=== PATIENT | female | born 1980 | race Caucasian/White ===

== ENCOUNTER 2017-09-20 00:27 | Inpatient (IN) | payer MEDICAID, OTHER ==
--- NOTE | 2017-09-20 00:42 | ED PDOC ---
Psych Transfer Clearance - Clearance Statement Clearance Statement: Reviewed vital signs, lab results and transfer papers. Patient clinically stable for psychiatric admission.
[2017-09-20 00:47] VITALS: O2SAT 97; BMI 30.9
[2017-09-20] MEDS ORDERED: Magnesium Hydroxide Susp 30 ml UD PO PRN (00:56)
[2017-09-20] MEDS ORDERED: Alum-Mag Hydrox-Simethicone Susp (30 mL) PO PRN (00:56)
[2017-09-20] MEDS ORDERED: DiphenhydrAMINE 50 mg/ml Inj IM PRN (00:56)
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
[2017-09-20 09:05] LABS: T4 8.31 ug/dl (5.5-11.0)
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
--- NOTE | 2017-09-20 19:33 | CP.PCM.CON ---
History of Present Illness - History of Present Illness History of Present Illness: 37 yo female admitted to psyche unit because of bizarre behaviour and delusional thoughts. Review of Systems - Review of Systems All systems: reviewed and no additional remarkable complaints except (aside from those mentioned above, 12 point system review were negative by me) Past Patient History - Infectious Disease Hx of Infectious Diseases: None - Tetanus Immunizations Tetanus Immunization: Unknown - Past Medical History & Family History Past Medical History?: No Past Family History: Reviewed and not pertinent - Past Social History Smoking Status: Light Smoker < 10 Cigarettes Daily Alcohol: Occasional Drugs: Denies - CARDIAC Hx Cardiac Disorders: No Hx Hypertension: No - PULMONARY Hx Respiratory Disorders: No Hx Tuberculosis: No - NEUROLOGICAL Hx Neurological Disorder: No Hx Migraine: Yes - HEENT Hx HEENT Problems: No - RENAL Hx Chronic Kidney Disease: No - ENDOCRINE/METABOLIC Hx Endocrine Disorders: No - HEMATOLOGICAL/ONCOLOGICAL Hx Blood Disorders: No Hx Cancer: No Hx Human Immunodeficiency Virus (HIV): No - INTEGUMENTARY Hx Dermatological Problems: No - MUSCULOSKELETAL/RHEUMATOLOGICAL Hx Musculoskeletal Disorders: No - GASTROINTESTINAL Hx Gastrointestinal Disorders: No - GENITOURINARY/GYNECOLOGICAL Hx Genitourinary Disorders: No Hx Sexually Transmitted Disorders: No - PSYCHIATRIC Hx Substance Use: Yes - SURGICAL HISTORY Hx Surgeries: No - ANESTHESIA Hx Anesthesia: No Meds Allergies/Adverse Reactions: Allergies Allergy/AdvReac Type Severity Reaction Status Date / Time avocado Allergy NAUSEA Verified 09/20/17 00:38 peanut Allergy ITCHING Verified 09/20/17 00:38 - Medications Medications: Current Medications Acetaminophen (Tylenol 325mg Tab) 650 mg PO Q4 PRN PRN Reason: Pain, moderate (4-7) Al Hydrox/Mg Hydrox/Simethicone (Maalox Plus 30 Ml) 30 ml PO Q4 PRN PRN Reason: Dyspepsia Aripiprazole (Abilify) 10 mg PO DAILY KARY Last Admin: 09/20/17 14:58 Dose: 10 mg Diphenhydramine HCl (Benadryl) 50 mg IM Q6 PRN PRN Reason: Extrapyramidal S/S Unable PO Diphenhydramine HCl (Benadryl) 50 mg PO HS PRN PRN Reason: Sleep Last Admin: 09/20/17 01:20 Dose: 50 mg Diphenhydramine HCl (Benadryl) 50 mg PO Q6 PRN PRN Reason: EPS Haloperidol (Haldol) 5 mg PO Q4 PRN PRN Reason: Agitation Last Admin: 09/20/17 01:20 Dose: 5 mg Haloperidol Lactate (Haldol) 5 mg IM Q4 PRN PRN Reason: Agitation, Unable to Take PO Lorazepam (Ativan) 2 mg IM Q4 PRN PRN Reason: Anxiety/Agitation,Unable PO Lorazepam (Ativan) 2 mg PO Q4 PRN PRN Reason: Anxiety/Agitation Last Admin: 09/20/17 01:20 Dose: 2 mg Magnesium Hydroxide (Milk Of Magnesia) 30 ml PO HS PRN PRN Reason: Constipation Physical Exam - Constitutional Appears: No Acute Distress - Head Exam Head Exam: ATRAUMATIC - Eye Exam Eye Exam: absent: Scleral icterus - ENT Exam ENT Exam: Mucous Membranes Moist - Neck Exam Neck exam: Negative for: Meningismus - Respiratory Exam Respiratory Exam: absent: Rhonchi, Wheezes, Respiratory Distress - Cardiovascular Exam Cardiovascular Exam: REGULAR RHYTHM, +S1, +S2 - GI/Abdominal Exam GI & Abdominal Exam: Soft. absent: Tenderness - Rectal Exam Rectal Exam: Deferred - Extremities Exam Extremities exam: Negative for: pedal edema - Back Exam Back exam: absent: tenderness - Neurological Exam Neurological exam: Alert, Oriented x3 - Psychiatric Exam Psychiatric exam: Normal Affect - Skin Skin Exam: Dry, Intact Results - Vital Signs Recent Vital Signs: Last Vital Signs Temp 98.1 F 09/20/17 17:00 Pulse 9 L 09/20/17 17:00 Resp 20 09/20/17 17:00 BP 118/65 09/20/17 17:00 Pulse Ox 97 09/20/17 00:39 - Labs Labs: Laboratory Results - last 24 hr 09/20/17 08:00 Triglycerides 155 H Cholesterol 190 LDL Cholesterol Direct 121 HDL Cholesterol 40 Thyroxine (T4) 8.31 TSH 3rd Generation 0.83 Assessment & Plan (1) Schizoaffective disorder Status: Acute Comment: psyche is managing
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
[2017-09-23 07:50] LABS: ALB/GLOB RATIO 1.3 (1.0-2.1); ALBUMIN 4.3 g/dL (3.5-5.0); ALT/SGPT 33 U/L (9-52); AST/SGOT 23 U/L (14-36); BLOOD UREA NITROGEN 11 mg/dl (7-17); CALCIUM 9.3 mg/dL (8.4-10.2); GFR AFRICAN-AMERICAN > 60; GFR NON-AFRICAN AMERICAN > 60; HDL CHOLESTEROL 40 MG/DL (30-70)
[2017-09-23 08:02] LABS: LDL CHOLESTEROL 138 mg/dL (0-129)
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
--- NOTE | 2017-09-25 18:33 | PCM.PYCHPN ---
Psychiatric Progress Note - Psychiatric Progress Note Patient seen today, length of contact: Patient evaluated, case discussed with team, chart reviewed Patient Chief Complaint: seen seated with peers watching tv redirectable to more private area within visualization of nurse's station, reports sleeping and eating well. mood is beginning to be calmer. does reports some lower back pain which pt. related to being chronic and mattress. pain reported at 2-3 out of ten. able to do "yoga to relax". staff report pt has been adherent with medications and milieu treatment. denies numbness tingling lower extremities denies changes in elimination patterns. Problems Identified/Issues Discussed: alteration in mood improving alteration in cognition improving alteration in sleep improving lower back pain Medical Problems: per chart Diagnostic Results: per psychiatry per medicine per nursing per social work DSM 5 Symptoms Update: see previous Medication Change: No Medical Record Reviewed: Yes Consults ordered or reviewed: per hospitalist Mental Status Examination - Cognitive Function Orientation: Person, Place, Situation, Time Memory: Intact Attention: Poor Concentration: Poor Association: Loose Fund of Knowledge: WNL Decription of patient's judgement and insights: somewhat less impaired - Mood Mood: Depressed, Anxious - Affect Affect: Broad, Other (Labile) - Speech Speech: Appropriate - Formal Thought Process Formal Thought Process: Circumstantial - Suicidal Ideation Suicidal Ideation: No - Homicidal Ideation Homicidal Ideation: No Goal/Treatment Plan - Goal/Treatment Plan Need for Continued Stay: Remain at risks for inpatient hospitalization, Discharge may exacerbated symptoms Progress Toward Problem(s) and Goals/Treatment Plan: inpt milieu vital signs and clinical observation per protocol and per clinical status adjust meds per status pt being followed by hospitalist motrin 600mg po every 8 hrs prn pain 1-3 with food prn as need for lower back pain discharge planning in process Estimated Date of D/C: 09/29/17 - Smoking Cessation Smoking Cessation Initiated: No Reason for not providing: pt defers
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
[2017-09-26 17:29] VITALS: RESP 18
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
[2017-09-28 09:06] VITALS: BP 109/65; PULSE 77; TEMP 97.9
== END 2017-09-28 10:10 | disposition home or self-care (01) | DRG 430 ==
LOC: H.ER 00:27 → H.PSYCH 00:41
PROVIDERS: ADMIT Psychiatry & Neurology Psychiatry; ATTEND Psychiatry & Neurology Psychiatry
PROC: GZHZZZZ Group Psychotherapy (ICD-10-PCS; principal; 2017-09-20)
PROC: GZ51ZZZ Individual Psychotherapy, Behavioral (ICD-10-PCS; 2017-09-20)
DX: F25.9 Schizoaffective disorder, unspecified (principal); F22 Delusional disorders; F12.90 Cannabis use, unspecified, uncomplicated; F31.9 Bipolar disorder, unspecified; G43.909 Migraine, unspecified, not intractable, without status migrainosus; Z79.899 Other long term (current) drug therapy; Z87.891 Personal history of nicotine dependence; R45.86 Emotional lability; G47.9 Sleep disorder, unspecified; M54.5 Low back pain

== ENCOUNTER 2018-03-10 23:22 | Inpatient (IN) | payer MEDICAID ==
[2018-03-10 23:23] VITALS: BMI 30.9
--- NOTE | 2018-03-11 00:26 | ED PDOC ---
HPI: Psych/Substance Abuse Time Seen by Provider: 03/10/18 23:27 Chief Complaint (Nursing): Psychiatric Evaluation Chief Complaint (Provider): Psychiatric Evaluation ED Caveat: Psychotic (internally preoccupied) History Per: EMS History/Exam Limitations: other Onset/Duration Of Symptoms: Hrs Current Symptoms Are (Timing): Still Present Additional Complaint(s): Lori Bourne is a 37 year old female who was brought to the ED by EMS and Police for psychiatric evaluation s/p finding her in the parking lot of [employer] acting bizarre. Patient is unable to give history as she is extremely internally preoccupied and is taking to herself. PMD: none provided Past Medical History Reviewed: Historical Data, Nursing Documentation, Vital Signs, Unable To Obtain Vital Signs: Last Vital Signs Temp 98.7 F 03/10/18 23:25 Pulse 111 H 03/10/18 23:25 Resp 16 03/10/18 23:25 BP 173/117 H 03/10/18 23:25 Pulse Ox 98 03/10/18 23:25 - Medical History PMH: Bipolar Disorder, Migraine Denies: Diabetes, Hepatitis, HIV, HTN, Chronic Kidney Disease, Seizures, Sexually Transmitted Disease - Family History Family History: States: Unknown Family Hx - Immunization History Hx Tetanus Toxoid Vaccination: No Hx Influenza Vaccination: No Hx Pneumococcal Vaccination: No - Home Medications Home Medications: Ambulatory Orders Medication Instructions Recorded traZODone [Desyrel] 50 mg PO HS #30 tab 09/28/17 - Allergies Allergies/Adverse Reactions: Allergies Allergy/AdvReac Type Severity Reaction Status Date / Time avocado Allergy NAUSEA Verified 09/20/17 00:38 peanut Allergy ITCHING Verified 09/20/17 00:38 canteloupe Allergy ITCHING Uncoded 03/10/18 23:25 Review of Systems ROS Statement: Except As Marked, All Systems Reviewed And Found Negative Review Of Systems: ROS cannot be obtained secondary to pt's inabilty to answer questions. Physical Exam - Reviewed Nursing Documentation Reviewed: Yes Vital Signs Reviewed: Yes - Physical Exam Appears: Positive for: Non-toxic, No Acute Distress Head Exam: Positive for: ATRAUMATIC, NORMAL INSPECTION, NORMOCEPHALIC Skin: Positive for: Normal Color, Warm, DRY Eye Exam: Positive for: EOMI, Normal appearance, PERRL ENT: Positive for: Normal ENT Inspection Neck: Positive for: Normal Cardiovascular/Chest: Positive for: Regular Rate, Rhythm. Negative for: Murmur Respiratory: Positive for: Normal Breath Sounds. Negative for: Respiratory Distress Gastrointestinal/Abdominal: Positive for: Normal Exam, Soft. Negative for: Tenderness Back: Positive for: Normal Inspection Extremity: Positive for: Normal ROM Neurologic/Psych: Positive for: Other (patient internally occupied, speaking nonsensically with internal stimuli) - Laboratory Results Result Diagrams: 03/12/18 07:15 03/12/18 07:18 - ECG O2 Sat by Pulse Oximetry: 98 (RA) Pulse Ox Interpretation: Normal Medical Decision Making Medical Decision Making: Time: 00:02 Impression: 37 year old female with likely drug induced psychosis Plan: --Alcohol Serum --CMP --Drug Screen --Urine --ED Urine Dipstick --CBC --Ativan 2 mg IM --Haldol 5 mg IM --1:1 Observation --Accucheck --Urinalysis 7:00 Patient will be signed out to Dr. Sy pending clinical sobriety, crisis evaluation, and reevaluation. Scribe Attestation: Documented by Adele Clarke, acting as a scribe for Alec Langston MD. Provider Scribe Attestation: All medical record entries made by the Scribe were at my direction and personally dictated by me. I have reviewed the chart and agree that the record accurately reflects my personal performance of the history, physical exam, medical decision making, and the department course for this patient. I have also personally directed, reviewed, and agree with the discharge instructions and disposition. Disposition - Clinical Impression Clinical Impression: Psychosis - Disposition Disposition: Transfer of Care Disposition Time: 07:00 Condition: STABLE
[2018-03-11 00:31] LABS: SQUAMOUS EPITHIAL 1 /hpf (0-5); URINE BACTERIA RARE (<OCC); URINE BILIRUBIN NEGATIVE (NEGATIVE); URINE BLOOD NEGATIVE (NEGATIVE); URINE CALCIUM OXALATE CRYSTALS MANY /hpf (<OCC); URINE CLARITY CLOUDY (Clear); URINE COLOR AMBER (YELLOW); URINE GLUCOSE (UA) NEG (Normal); URINE LEUKOCYTE ESTERASE NEG Leu/uL (Negative); URINE PROTEIN >=500 mg/dL (NEGATIVE)
[2018-03-11 00:49] LABS: BARBITURATES, UR NEGATIVE (NEGATIVE); BENZODIAZEPINES, UR NEGATIVE (NEGATIVE); OPIATES, UR NEGATIVE (NEGATIVE); PHENCYCLIDINE, UR NEGATIVE (NEGATIVE)
[2018-03-11 00:52] LABS: BASO % 0.3 % (0.0-2.0); EOS % 0.2 % (0.0-4.0); LYMPH # 1.9 K/uL (1.0-4.3); LYMPH % 14.7 % (20.0-40.0); MEAN CORPUSCULAR HGB CONC 35.1 g/dL (33.0-37.0); MEAN PLATELET VOLUME 8.9 fl (7.2-11.7); MONO # 0.9 K/uL (0.0-0.8); MONO % 6.7 % (0.0-10.0); NEUT # 10.1 K/uL (1.8-7.0); NEUT % 78.1 % (50.0-75.0); NRBC % 0.1 % (0.0-0.0); RBC 4.38 Mil/uL (3.80-5.20); RED CELL DISTRIBUTION WIDTH 13.8 % (11.5-14.5); WHITE BLOOD COUNT 12.9 K/uL (4.8-10.8)
[2018-03-11 01:11] LABS: ALB/GLOB RATIO 1.4 (1.0-2.1); ALBUMIN 4.7 g/dL (3.5-5.0); ALT/SGPT 33 U/L (9-52); AST/SGOT 50 U/L (14-36); BLOOD UREA NITROGEN 8 mg/dl (7-17); CALCIUM 9.6 mg/dL (8.4-10.2); GFR AFRICAN-AMERICAN > 60; GFR NON-AFRICAN AMERICAN > 60
--- NOTE | 2018-03-11 08:01 | ED PDOC ---
- Laboratory Results Result Diagrams: 03/11/18 00:34 03/11/18 00:34 - ECG O2 Sat by Pulse Oximetry: 98 Medical Decision Making Medical Decision Makinam received pending crisis evaluation, dispo. 37yo F displaying bizarre behavior with delusions. 1115am per crisis admit to [facility] (overflow) for psychosis Dr Mcbride admitting medically stable for psychiatric admission CXR neg per radiologist EKG interpreted by me, sinus rhythm without ectopy or ST changes Disposition - Clinical Impression Clinical Impression: Psychosis - POA Present On Arrival: None - Disposition Disposition: Admitted as In-Patient Disposition Time: 10:30 Condition: STABLE
[2018-03-11 11:34] VITALS: O2SAT 98
[2018-03-11] MEDS ORDERED: Magnesium Hydroxide Susp 30 ml UD PO PRN (11:49)
[2018-03-11] MEDS ORDERED: Alum-Mag Hydrox-Simethicone Susp (30 mL) PO PRN (11:49)
[2018-03-11] MEDS ORDERED: DiphenhydrAMINE 50 mg/ml Inj IM PRN (11:49)
--- NOTE | 2018-03-11 11:55 | PCM.PSYCH ---
Initial Psychiatric Evaluation - Initial Psychiatric Evaluation Type of Admission: Voluntary Legal Status: Capacity Chief Complaint (in patient's own words): "God is talking to me." Patient's Reaction to Hospitalization: HPI: 37 yo female, h/o schizoaffective disorder, presents after BIB police for bizarre behavior, internal preoccupation, +mormon preoccupation, +AH of voice of God, +VH of angels. She denies depression/anxiety/SI/HI. She has poor insight/judgment and has been non-compliant with medications and treatment. PPHx: Previous psychiatric hospitalizations, most recent to 3 on 09/10; was discharged on Abilify and Trazodone at that time. PMHx: Migraines ALL: Avocado, peanust SHx: Homeless, +MJ use, +smokes 3-4 cig/day, denies etoh use Current Medications: Active Medications Generic Name Dose Route Start Last Admin Trade Name Freq PRN Reason Stop Dose Admin Acetaminophen 650 mg 03/11/18 11:49 Tylenol 325mg Tab PO Q4 PRN Pain, moderate (4-7) Al Hydrox/Mg Hydrox/Simethicone 30 ml 03/11/18 11:49 Maalox Plus 30 Ml PO Q4 PRN Dyspepsia Diphenhydramine HCl 50 mg 03/11/18 11:49 Benadryl IM Q6 PRN Extrapyramidal S/S Unable PO Diphenhydramine HCl 50 mg 03/11/18 11:49 Benadryl PO Q6 PRN Extrapyramidal Symptoms Haloperidol 5 mg 03/11/18 11:49 Haldol PO Q4 PRN Agitation Haloperidol Lactate 5 mg 03/11/18 11:49 Haldol IM Q4 PRN Agitation, Unable to Take PO Lorazepam 2 mg 03/11/18 11:49 Ativan IM Q4 PRN Anxiety/Agitation,Unable PO Magnesium Hydroxide 30 ml 03/11/18 11:49 Milk Of Magnesia PO HS PRN Constipation Past Psychiatric History - Past Psychiatric History Previous Treatment History: Inpatient Pertinent Medical Hx (Current Medical&Sleep Prob, Allergies): Allergies Allergy/AdvReac Type Severity Reaction Status Date / Time avocado Allergy NAUSEA Verified 09/20/17 00:38 peanut Allergy ITCHING Verified 09/20/17 00:38 canteloupe Allergy ITCHING Uncoded 03/10/18 23:25 traZODone [Desyrel] 50 mg PO HS #30 tab 09/28/17 Review of Systems - Psychiatric Psychiatric: As Per HPI, Abnormal Sleep Pattern, Anxiety, Auditory Hallucinations, Behavioral Changes, Difficulty Concentrating, Irritability, Mood Swings Mental Status Examination - Personal Presentation Personal Presentation: Looks stated age - Affect Affect: Other (Labile) - Motor Activity Motor Activity: Psychomotor Agitation - Reliability in Providing Information Reliability in Providing Information: Poor, due to alteration in thoughts - Speech Speech: Tangential, Coherent - Mood Mood: Neutral - Formal Thought Process Formal Thought Process: Hallucinations, Delusions - Hallucinations/Delusions Hallucinations: Visual, Auditory - Obsessions/Compulsions Obsessions: No Compulsions: No - Cognitive Functions Orientation: Person, Place, Situation, Time Sensorium: Alert Judgement: Imparied, as evidence by: Poor judgement, Imparied, as evidence by: Lack of insight into illness Memory: Recent intact, as evidence by: Ability to recall events of the day - Risk Risk: Diminished functioning - Strength & Assets Inventory Strength & Assets Inventory: Cooperative - Limitations Limitations: Other (Homeless, Poor social support) DSM 5 DX - DSM 5 DSM 5 Diagnosis: Schizoaffective Disorder - Recommended/Plan of Treatment Treatment Recommendations and Plan of Treatment: Schizoaffective Disorder -Admit to psychiatry unit -Individual and group therapy -Psychoeducation -Medicine consult -Start Seroquel -Nicotine patch -Disposition planning Projected ELOS: 7-10 days Discharge Plan and Discharge Criteria: Discharge when patient is psychiatrically stable - Smoking Cessation Smoking Cessation Initiated: Yes
--- NOTE | 2018-03-11 11:58 | RAD ---
Date of service: 03/11/2018 HISTORY: med clr COMPARISON: No prior. FINDINGS: LUNGS: No active pulmonary disease. PLEURA: No significant pleural effusion identified, no pneumothorax apparent. CARDIOVASCULAR: Normal. OSSEOUS STRUCTURES: No significant abnormalities. VISUALIZED UPPER ABDOMEN: Normal. OTHER FINDINGS: None. IMPRESSION: No acute cardiopulmonary disease appreciated.
--- NOTE | 2018-03-11 14:59 | CARD ---
APPROVED REPORT Date of service: 03/11/2018 EKG Measurement Heart [id number] <Conclusion> Normal sinus rhythm Normal ECG
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
--- NOTE | 2018-03-12 05:42 | PCM.BM ---
<SarbjitSid - Last Filed: 03/12/18 05:41> Treatment Plan Problems - Problems identified on initial assessmt Delusions Date Initiated: 03/12/18 Time Initiated: 05:41 Assessment reference: NA Status: Active Thought Process Date Initiated: 03/12/18 Time Initiated: 05:41 Assessment reference: NA Status: Active Medication nonadherence Date Initiated: 03/12/18 Time Initiated: 05:42 Assessment reference: NA Status: Active Treatment assets and liabiliti Patient Assests: adapts well, cooperative, self-reliant, ADL independent, physically healthy, good support system, negotiates basic needs, cognitively intact Patient Liabilities: poor support system, relationship conflicts, substance abuse - Milieu Protocol Maintain good personal hygiene: every shift Encourage regular showers, every shift Remind patient to perform daily oral care, every shift Assist patient to perform ADL's Maintain personal safety: daily Educate patient to report safety concerns to staff, daily Monitor environment for contraband/sharps Medication safety: Monitor for expected outcome, potential side effects: daily, Assess barriers to learning: daily, Assess readiness for medication education: daily Milieu Narrative: Schizoaffective Disorder -Admit to psychiatry unit -Individual and group therapy -Psychoeducation -Medicine consult -Start Seroquel -Nicotine patch -Disposition planning Discharge/Continuing Care - Treatment Team Participation Patient/Family/SO Statement: Schizoaffective Disorder -Admit to psychiatry unit -Individual and group therapy -Psychoeducation -Medicine consult -Start Seroquel -Nicotine patch -Disposition planning <Debra Gonzalez - Last Filed: 03/12/18 08:57> - Diagnosis (1) Schizoaffective disorder Status: Chronic Interventions: Medication management, Individual and group therapy, Psychoeducation 03/12/18 08:57 <Kallie Martell - Last Filed: 03/12/18 16:13> Family Contact Family involvement: Patient does not wish Family/SO involvement - Outside Agency DCP&P Care involvment: Information-sharing Discharge/Continuing Care - Education Needs Education Needs: Patient Medication, Patient Diagnosis/Disease Process, Patient Coping Skills, Patient Placement options, Patient Community resources, Patient Activities of Daily Living, Patient Nutrition, Patient Personal Hygiene/Grooming , Patient Aftercare Safety Plan - Discharge Discharge Criteria: Tolerates medication w/o severe side effects, Free of paranoid thoughts, Normal sleep pattern, Ability to care for self, Reduction of target symptoms Discharge to:: [facility] - Additional Comments 03/12/18 16:06 Pt seen and discussed in team meeting. Reason for hospitalization reviewed and discussed. Pt reported feeling "pretty good." Pt reported that she last yesterday auditory hallucinations yesterday. Pt reported she is "very spiritual. " Pt is homeless and reported she cannot stay with her mother due to senior building regulation. Pt's social and medical issues reviewed. Pt's medications reviewed. Tx plan reviewed and pt is agreeable. SW to continue to follow case. - Treatment Team Participation Discussed with Family/SO: No Was Patient/Family/SO present at Treatment Team Meeting: Yes
[2018-03-12 07:31] LABS: BASO # 0.1 K/uL (0.0-0.2); BASO % 0.6 % (0.0-2.0); EOS # 0.1 K/uL (0.0-0.7); EOS % 0.9 % (0.0-4.0); HEMOGLOBIN 14.1 g/dL (12.0-16.0); LYMPH # 1.8 K/uL (1.0-4.3); LYMPH % 21.9 % (20.0-40.0); MEAN CELL VOLUME 92.2 fl (81.0-99.0); MEAN CORPUSCULAR HEMOGLOBIN 31.1 pg (27.0-31.0); MEAN CORPUSCULAR HGB CONC 33.7 g/dL (33.0-37.0); MEAN PLATELET VOLUME 8.8 fl (7.2-11.7); MONO # 0.6 K/uL (0.0-0.8); MONO % 7.6 % (0.0-10.0); NEUT # 5.6 K/uL (1.8-7.0); RBC 4.53 Mil/uL (3.80-5.20); RED CELL DISTRIBUTION WIDTH 14.2 % (11.5-14.5); WHITE BLOOD COUNT 8.1 K/uL (4.8-10.8)
[2018-03-12 07:45] LABS: LDL CHOLESTEROL 91 mg/dL (0-129)
[2018-03-12 07:51] LABS: T4 9.34 ug/dl (5.5-11.0)
[2018-03-12 08:09] LABS: ALB/GLOB RATIO 1.4 (1.0-2.1); ALBUMIN 4.4 g/dL (3.5-5.0); ALT/SGPT 31 U/L (9-52); AST/SGOT 42 U/L (14-36); BLOOD UREA NITROGEN 12 mg/dl (7-17); CALCIUM 9.3 mg/dL (8.4-10.2); GFR AFRICAN-AMERICAN > 60; GFR NON-AFRICAN AMERICAN > 60; HDL CHOLESTEROL 56 MG/DL (30-70)
--- NOTE | 2018-03-12 09:48 | PCM.PYCHPN ---
Psychiatric Progress Note - Psychiatric Progress Note Patient seen today, length of contact: Patient evalauted, case discussed with team, chart reviewed Patient Chief Complaint: "God is talking to me." Problems Identified/Issues Discussed: Patient continues to be labile, hypomanic, internally preoccupied at times, w/ AH of God talking to her and hinduism preoccupation. She is in good behavioral control and has not had any aggression or agitation in the unit. Medication Change: Yes (Increase Seroquel to 200 mg PO HS) Medical Record Reviewed: Yes Consults ordered or reviewed: Medicine consult Mental Status Examination - Cognitive Function Orientation: Person, Place, Situation, Time Memory: Impaired Association: Loose Fund of Knowledge: WNL Decription of patient's judgement and insights: Poor I/J - Mood Mood: Neutral - Affect Affect: Other (Labile, Hypomanic) - Speech Speech: Appropriate - Formal Thought Process Formal Thought Process: Hallucinations, Delusions Psychotic Thoughts and Behaviors: +AH; +Advent delusions - Suicidal Ideation Suicidal Ideation: No - Homicidal Ideation Homicidal Ideation: No Goal/Treatment Plan - Goal/Treatment Plan Need for Continued Stay: Remain at risks for inpatient hospitalization, Discharge may exacerbated symptoms, Severe functional impairment Progress Toward Problem(s) and Goals/Treatment Plan: Schizoaffective Disorder -Individual and group therapy -Psychoeducation -Medicine consult -Increase Seroquel to 200 mg PO HS -Nicotine patch -Disposition planning Estimated Date of D/C: 03/19/18 - Smoking Cessation Smoking Cessation Initiated: Yes
--- NOTE | 2018-03-13 10:22 | PCM.PYCHPN ---
Psychiatric Progress Note - Psychiatric Progress Note Patient seen today, length of contact: Patient evalauted, case discussed with team, chart reviewed Patient Chief Complaint: pt has been less depressed and less irritible and tolerating meds well.pt still has poor insight about canabis abuse. Medication Change: Yes (Increase Seroquel to 200 mg PO HS) Medical Record Reviewed: Yes Mental Status Examination - Cognitive Function Orientation: Person, Place, Situation, Time Memory: Impaired Association: Loose Fund of Knowledge: WNL - Mood Mood: Neutral - Affect Affect: Other (Labile, Hypomanic) - Speech Speech: Appropriate - Formal Thought Process Formal Thought Process: Hallucinations, Delusions - Suicidal Ideation Suicidal Ideation: No - Homicidal Ideation Homicidal Ideation: No Goal/Treatment Plan - Goal/Treatment Plan Need for Continued Stay: Remain at risks for inpatient hospitalization, Discharge may exacerbated symptoms, Severe functional impairment Progress Toward Problem(s) and Goals/Treatment Plan: will continue to stabilize pt with meds . will do d/c planning as per dr madsen Estimated Date of D/C: 03/19/18
--- NOTE | 2018-03-15 18:26 | PCM.PYCHPN ---
Psychiatric Progress Note - Psychiatric Progress Note Patient seen today, length of contact: Patient evalauted, case discussed with team, chart reviewed Patient Chief Complaint: was feeling depressed irritable feels as though is somewhat calmer with current regimen staff report pt may be somewhat caodaism preoccupation less Problems Identified/Issues Discussed: per psychiatry per medicine per nursing per social media content manager per recreational therapy Medical Problems: per chart Diagnostic Results: per psychiatry per medicine per nursing per social media content manager per recreational therapy DSM 5 Symptoms Update: improving mood less reoccupation religiosity ramirez per staff less irritable Medication Change: No Medical Record Reviewed: Yes Consults ordered or reviewed: pt seen by hositalist Mental Status Examination - Cognitive Function Orientation: Person, Place, Situation, Time Memory: Impaired Association: Loose Fund of Knowledge: WNL Decription of patient's judgement and insights: impaired - Mood Mood: Neutral - Affect Affect: Other (Labile, Hypomanic) - Speech Speech: Appropriate - Formal Thought Process Formal Thought Process: Hallucinations, Delusions - Suicidal Ideation Suicidal Ideation: No - Homicidal Ideation Homicidal Ideation: No Goal/Treatment Plan - Goal/Treatment Plan Need for Continued Stay: Remain at risks for inpatient hospitalization, Discharge may exacerbated symptoms, Severe functional impairment Progress Toward Problem(s) and Goals/Treatment Plan: inpt milieu adjust meds per status discharge planning in progress Estimated Date of D/C: 03/19/18 - Smoking Cessation Smoking Cessation Initiated: No Reason for not providing: pt deferred
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
[2018-03-18 06:14] VITALS: BP 124/90; PULSE 82; RESP 19; TEMP 97.7
--- NOTE | 2018-03-18 14:04 | PCM.BM ---
Treatment Plan Problems - Problems identified on initial assessmt Delusions Date Initiated: 03/12/18 Time Initiated: 05:41 Assessment reference: NA Status: Active Thought Process Date Initiated: 03/12/18 Time Initiated: 05:41 Assessment reference: NA Status: Active Medication nonadherence Date Initiated: 03/12/18 Time Initiated: 05:42 Assessment reference: NA Status: Active Treatment assets and liabiliti Patient Assests: adapts well, cooperative, self-reliant, ADL independent, physically healthy, good support system, negotiates basic needs, cognitively intact Patient Liabilities: poor support system, relationship conflicts, substance abuse - Milieu Protocol Maintain good personal hygiene: every shift Encourage regular showers, every shift Remind patient to perform daily oral care, every shift Assist patient to perform ADL's Maintain personal safety: daily Educate patient to report safety concerns to staff, daily Monitor environment for contraband/sharps Medication safety: Monitor for expected outcome, potential side effects: daily, Assess barriers to learning: daily, Assess readiness for medication education: daily Milieu Narrative: inpt milieu adjust meds per status discharge planning in progress Family Contact Family involvement: Famliy/SO not involved Family contact: Patient agrees to contact, Telephone contact initiated by staff Family contact name: Portia - sister Family contacted how many times per week?: 2 Family contact comment: [phone] - Outside Agency DCP&P Care involvment: Information-sharing Agency contact name: Unknown telephonic nurse case manager contact name and information Discharge/Continuing Care - Education Needs Education Needs: Patient Medication, Patient Diagnosis/Disease Process, Patient Coping Skills, Patient Placement options, Patient Community resources, Patient Activities of Daily Living, Patient Nutrition, Patient Personal Hygiene/Grooming , Patient Aftercare Safety Plan - Discharge Discharge Criteria: Tolerates medication w/o severe side effects, Free of paranoid thoughts, Normal sleep pattern, Ability to care for self, Reduction of target symptoms Discharge to:: [facility] - Additional Comments 03/12/18 16:06 Pt seen and discussed in team meeting. Reason for hospitalization reviewed and discussed. Pt reported feeling "pretty good." Pt reported that she last yesterday auditory hallucinations yesterday. Pt reported she is "very spiritual. " Pt is homeless and reported she cannot stay with her mother due to senior building regulation. Pt's social and medical issues reviewed. Pt's medications reviewed. Tx plan reviewed and pt is agreeable. SW to continue to follow case. - Treatment Team Participation Patient/Family/SO Statement: inpt milieu adjust meds per status discharge planning in progress Discussed with Family/SO: No Was Patient/Family/SO present at Treatment Team Meeting: Yes Treatment Plan Review Patient participation: Yes Family/SO/Caregiver participation: No Additional Comments: Pt seen and discussed in team meeting. Pt's progress on the unit reviewed. Pt's medications reviewed. Psycho-education provided regarding importance of treatment and medication compliance post discharge. Pt scheduled for discharge this afternoon. Pt reported she will either stay at a friends or a local care home. Pt provided with information for care home and additional resources for the homeless in [facility]. Pt reported feeling "great, much better." Pt denied any side affects with prescribed medication. Pt reported feeling more like herself and more focused. - Problem Delusions Date Initiated: 03/11/18 Time Initiated: 05:41 Progress toward outcomes: improved Thought Process Date Initiated: 03/11/18 Time Initiated: 05:41 Progress toward outcomes: improved Medication nonadherence Date Initiated: 03/11/18 Time Initiated: 05:42 Progress toward outcomes: resolved - Discharge / Continuing Care Discharge to:: [facility]: Outpatient therapy Health Needs: Follow up care/test, Doctor appointments, Nutritional, Medications /Rx, Educational, Recreational/Social, Alcohol/Drug treatment
--- NOTE | 2018-03-18 17:58 | PCM.PYCHDC ---
Mental Status Examination - Mental Status Examination Orientation: Person, Place, Situation, Time Memory: Intact Mood: Neutral Affect: Broad Speech: Soft Attention: WNL Concentration: WNL Association: WNL Fund of Knowledge: WNL Formal Thought Process: No Impairment Description of patient's judgement and insight: improved Psychotic Thoughts and Behaviors: less grandiosity as compared to initial presentation Suicidal Ideation: No Current Homicidal Ideation?: No Discharge Summary - Discharge Note Reason for Hospitalization: pt came to [facility] via ems after ems being called after pt reportedly was exhibiting bizarre beahvior, being religiously preoccupation. u tox noted to be positive for cannibus. pt with hx of schizoaffective disorder bipolar type. pt was admitted to 3[facility], evaluated by psychiatry, medications were initiated and titrated according to clinical status and side effect profile. pt was seen by hospitalist. pt was provided with milieu therapy. pt appeared to be stablized, discharge planning was developed. Pt was provided with follow up care and received a 3oday supply prescription of abilify 15mg po to be taken daily. discharge instructions were provided by primary rn, written instructions per provided. pt was escorted off of unit without incident. Psychiatric History (includes Medical, Family, Personal Hx): history of schizoafective disorder bipolar type, previous inpt adm/opd Laboratory Data: per chart utox +thc Consultations:: List each consultation separately and include: 1. Reason for request. 2. Findings. 3. Follow-up Consultations: pt seen by hospitalist Summary of Hospital Course include:: 1. Description of specific treatment plan utilized for patients during their course of treatmen. 2. Summarize the time- course for resolution of acute symptoms and/or regressed behaviors. 3. Describe issues identified and worked on during hospitalization. 4. Describe medication utilized. 5. Describe medical problems identified and treated. 6. Reassessment of suicide risk Summary of Hospital Course: voluntary admission to [facility] vis er [facility] after ems called pt reportedly was exhibited bizzare behavior. pt was evaluated psychiatry, medications innitiated and titrated according to clinical status and side effect profile. pt was evaluated and seen by hospitalist. pt received milieu therapy, participated in team meetings. pt appear to stabilize appeared to reach baseline. pt was provided with aftercare and discharge planning. pt received abilify `15mg po day prescription #30 with no refills. primary rx provided discharge instructions and written instruction. - Final Diagnosis (DSM 5) Condition upon Discharge: STABLE Disposition: HOME/ ROUTINE Follow-up Treatment Plan: pt to be discharged per attending - Smoking Cessation Smoking Cessation Medication prescribed: No - Antipsychotic Medications Pt discharged on 2 or more routine antipsychotic medications: No
== END 2018-03-18 13:41 | disposition home or self-care (01) | DRG 430 ==
LOC: H.ER 23:22 → H.ERHOLD 03-11 11:31 → H.STEP 03-11 12:48
PROVIDERS: ADMIT Psychiatry & Neurology Psychiatry; ATTEND Psychiatry & Neurology Psychiatry
PROC: GZHZZZZ Group Psychotherapy (ICD-10-PCS; principal; 2018-03-11)
DX: F25.0 Schizoaffective disorder, bipolar type (principal); Z59.0 Homelessness; Z91.14 Patient's other noncompliance with medication regimen; Z91.19 Patient's noncompliance with other medical treatment and regimen; G43.909 Migraine, unspecified, not intractable, without status migrainosus; F12.10 Cannabis abuse, uncomplicated; Z91.010 Allergy to peanuts; Z91.018 Allergy to other foods; F17.210 Nicotine dependence, cigarettes, uncomplicated